=== PATIENT | female | born 1980 | race Caucasian/White ===

== ENCOUNTER → 2016-08-14 | Outpatient (CLI) | payer OTHER ==
[2016-08-14 17:20] LABS: BASO % 0.3 %; BASO ABS # 0.02 K/uL (0-0.2); COMPLETE YES; EOS % 2.6 %; HEMATOCRIT 41.2 % (37-47); IG% 0.1 %; LYMPH % 36.3 %; LYMPH ABS # 2.68 K/uL (1.2-3.4); MEAN CELL VOLUME 90.5 fL (80-100); MEAN CORPUSCULAR HEMOGLOBIN 29.2 pg (25-34); MEAN CORPUSCULAR HGB CONC 32.3 g/dl (32-36); MEAN PLATELET VOLUME 11.3 fL (7.4-10.4); MONO % 7.7 %; PLATELET COUNT 103 K/uL (130-400); RED BLOOD COUNT 4.55 M/uL (4.2-5.4); WHITE BLOOD COUNT 7.38 K/uL (4.8-10.8)
[2016-08-14 17:24] LABS: ALT/SGPT 24 U/L (12-78); BLOOD UREA NITROGEN 21 mg/dl (7-18); BUN/CREATININE RATIO 23.2 (10-20); CALCIUM 8.7 mg/dl (8.5-10.1); CARBON DIOXIDE 29 mmol/L (21-32); CHLORIDE 104 mmol/L (98-107); CHOLESTEROL 211 mg/dl (0-200); GLUCOSE 92 mg/dl (70-99); POTASSIUM 4.4 mmol/L (3.5-5.1); SODIUM 139 mmol/L (136-145)
[2016-08-14 17:35] LABS: ALKALINE PHOSPHATASE 62 U/L (45-117); AST/SGOT 14 U/L (15-37); CHOLESTEROL/HDL RATIO 3.3; HDL CHOLESTEROL 63 mg/dl; LDL CHOLESTEROL CALCULATED 107 mg/dl; THYROID STIMULATING HORMONE 0.582 uIu/ml (0.300-4.500); TRIGLYCERIDES 205 mg/dl (0-150); VERY LOW DENSITY LIPOPROT CALC 41 mg/dl
== END | disposition home or self-care (01) ==
LOC: C.LABBC 14:07
PROVIDERS: ATTEND Nurse Practitioner Adult Health
DX: Z00.00 Encounter for general adult medical examination without abnormal findings (principal); D69.6 Thrombocytopenia, unspecified; R42 Dizziness and giddiness; H81.09 Meniere's disease, unspecified ear

== ENCOUNTER → 2016-08-27 | Outpatient (CLI) | payer OTHER ==
--- NOTE | 2016-08-27 12:48 | DIAGNOSTIC IMAGING REPORT ---
THYROID ULTRASOUND CLINICAL HISTORY: Enlarged thyroid. COMPARISON STUDY: None. TECHNIQUE: Sonography of the thyroid gland was performed. FINDINGS: The right thyroid lobe measures 4.5 x 1.7 x 2.1 cm and the left lobe measures 4.4 x 1.2 x 1.7 cm. The isthmus measures 0.3 cm in thickness. There are a few tiny hypoechoic/cystic thyroid nodules that measure up to 2 mm. These likely reflect tiny colloid cysts. IMPRESSION: A few tiny colloid cysts measuring up to 2 mm. Otherwise, normal thyroid ultrasound. Electronically signed by: Kane Cai M.D. 08/27/2016 12:47 PM Dictated Date/Time: 08/27/2016 12:46 PM
== END | disposition home or self-care (01) ==
LOC: C.ULTRBC 12:15
PROVIDERS: ATTEND Physician Assistant
DX: E01.0 Iodine-deficiency related diffuse (endemic) goiter (principal)

== ENCOUNTER → 2016-09-11 | Outpatient (CLI) | payer OTHER ==
[2016-09-11 13:57] LABS: HEMATOCRIT 39.7 % (37-47); MEAN CELL VOLUME 90.8 fL (80-100); MEAN CORPUSCULAR HEMOGLOBIN 29.5 pg (25-34); MEAN CORPUSCULAR HGB CONC 32.5 g/dl (32-36); MEAN PLATELET VOLUME 12.4 fL (7.4-10.4); PLATELET COUNT 70 K/uL (130-400); RED BLOOD COUNT 4.37 M/uL (4.2-5.4)
[2016-09-11 13:59] LABS: BASO % 0.4 %; BASO ABS # 0.02 K/uL (0-0.2); COMPLETE YES; EOS % 1.9 %; LYMPH % 35.8 %; LYMPH ABS # 2.04 K/uL (1.2-3.4); MONO % 11.8 %; NEUT % 50.1 %; PLT ESTIMATE DECREASED
== END | disposition home or self-care (01) ==
LOC: C.LABBC 09:49
PROVIDERS: ATTEND Nurse Practitioner Adult Health
DX: R79.89 Other specified abnormal findings of blood chemistry (principal)

== ENCOUNTER → 2016-10-11 | Outpatient (CLI) | payer OTHER ==
--- NOTE | 2016-10-11 13:56 | MAMMOGRAPHY REPORT ---
BILATERAL DIGITAL DIAGNOSTIC MAMMOGRAM TOMOSYNTHESIS WITH CAD AND TARGETED LEFT ULTRASOUND: 10/11/2016 CLINICAL HISTORY: The patient reports feeling a left breast lump during her period approximately 2 we eks ago. She can no longer clearly feel a lump but feels some residual tenderness in the region. TECHNIQUE: Breast tomosynthesis in addition to standard 2D mammography was performed. Current study was also evaluated with a Computer Aided Detection (CAD) system. Bilateral CC and MLO 2-D and tomosy nthesis images were obtained. COMPARISON: No prior exams were available for comparison. BREAST COMPOSITION: The tissue of both breasts is heterogeneously dense, which may obscure small mas ses. FINDINGS: There are no suspicious masses, calcifications, or areas of architectural distortion noted in either breast. A triangle marker liao the site of the palpable lump in the left upper outer quad rant; no suspicious findings are seen in this region mammographically. Targeted ultrasound was performed of the general region of the palpable lump and residual tenderness felt by the patient. She can no longer clearly feel a lump but pointed to the general region in the left breast at 1:00, approximately 9 cm from the nipple. Sonographically normal tissue is seen in th is region, without evidence of a mass or other suspicious sonographic abnormality. IMPRESSION: ACR BI-RADS CATEGORY 1: NEGATIVE, TARGETED ULTRASOUND ACR BI-RADS CATEGORY 1: NEGATIVE No suspicious mammographic or sonographic abnormality at the site of the previously palpable left elijah ast lump and tenderness pointed out by the patient. There is no mammographic or targeted sonographic evidence of malignancy. Recommend clinical follow-up for the left breast lump and tenderness, and r ecommend routine bilateral screening mammograms starting at the age of 40 unless otherwise clinically indicated. The patient has been verbally notified of the results. Approximately 10% of breast cancers are not detected with mammography. A negative mammographic report should not delay biopsy if a clinically suggestive mass is present. Kianna Soriano M.D. ah/:10/11/2016 10:04:33 Marketing/Sales Person: Yamila ATKINSON)([employer]), [facility] letter sent: Normal 1/2 BI-RADS Code: ACR BI-RADS Category 1: Negative Ultrasound BI-RADS: ACR BI-RADS Category 1: Negative
== END | disposition home or self-care (01) ==
LOC: C.MAMM 09:31
PROVIDERS: ATTEND Family Medicine
DX: N63 Unspecified lump in breast (principal)

== ENCOUNTER → 2016-11-13 | Outpatient (CLI) | payer OTHER | END | disposition home or self-care (01) | LOC: C.PAPS 07:37 | PROVIDERS: ATTEND Nurse Practitioner Adult Health | DX: Z12.4 Encounter for screening for malignant neoplasm of cervix (principal) ==

== ENCOUNTER → 2016-12-05 | Outpatient (CLI) | payer OTHER ==
--- NOTE | 2016-12-05 15:46 | DIAGNOSTIC IMAGING REPORT ---
C-SPINE ROUTINE 4 OR 5 VIEWS HISTORY: 36 years-old Female PARESTHESIA OF ARM chronic paresthesias of the bilateral arms COMPARISON: None available TECHNIQUE: 5 views of the cervical spine FINDINGS: There is straightening of the normal cervical lordosis. No acute fracture, subluxation or significant degenerative changes. No prevertebral soft tissue swelling. Imaged lung apices appear clear. IMPRESSION: 1. No acute fracture, subluxation or significant degenerative changes. 2. Straightening of the normal cervical lordosis. This may be attributed to positioning or paraspinal muscle spasm. The above report was generated using voice recognition software. It may contain grammatical, syntax or spelling errors. Electronically signed by: Keenan Cade M.D. 12/05/2016 3:45 PM Dictated Date/Time: 12/05/2016 3:44 PM
[2016-12-05 16:56] LABS: HEMATOCRIT 40.7 % (37-47); MEAN CELL VOLUME 90.6 fL (80-100); MEAN CORPUSCULAR HEMOGLOBIN 29.8 pg (25-34); MEAN CORPUSCULAR HGB CONC 32.9 g/dl (32-36); RED BLOOD COUNT 4.49 M/uL (4.2-5.4); WHITE BLOOD COUNT 6.46 K/uL (4.8-10.8)
[2016-12-05 17:03] LABS: MEAN PLATELET VOLUME 11.6 fL (7.4-10.4); PLATELET COUNT 48 K/uL (130-400)
[2016-12-05 17:17] LABS: BASO % 0.2 %; BASO ABS # 0.01 K/uL (0-0.2); COMPLETE YES; EOS % 0.5 %; LYMPH % 36.7 %; LYMPH ABS # 2.37 K/uL (1.2-3.4); NEUT % 55.6 %
== END | disposition home or self-care (01) ==
LOC: C.RADBC 14:34
PROVIDERS: ATTEND Nurse Practitioner Adult Health
DX: R20.2 Paresthesia of skin (principal); D69.6 Thrombocytopenia, unspecified; R42 Dizziness and giddiness

== ENCOUNTER → 2017-04-09 | Outpatient (CLI) | payer OTHER ==
--- NOTE | 2017-04-09 11:43 | DIAGNOSTIC IMAGING REPORT ---
L CLAVICLE, L SHOULDER MIN 2 VIEWS ROUTINE CLINICAL HISTORY: Left clavicle and left shoulder pain. COMPARISON STUDY: None. FINDINGS: No fracture or dislocation within the left shoulder or left clavicle. The AC joint is well aligned. Soft tissues are unremarkable. Mild dextroscoliosis thoracic spine. IMPRESSION: No fracture or dislocation within the left shoulder or left clavicle. Electronically signed by: Nitesh Green M.D. 04/09/2017 11:42 AM Dictated Date/Time: 04/09/2017 11:40 AM
--- NOTE | 2017-04-09 11:47 | DIAGNOSTIC IMAGING REPORT ---
R SHOULDER MIN 2 VIEWS ROUTINE CLINICAL HISTORY: M89.8X1 RIGHT SHOULDER PAIN COMPARISON: None. DISCUSSION: No fractures or dislocations are visualized. There are no erosive or destructive changes. IMPRESSION: No significant bony abnormalities Electronically signed by: James Vega M.D. 04/09/2017 11:46 AM Dictated Date/Time: 04/09/2017 11:45 AM
== END | disposition home or self-care (01) ==
LOC: C.RADBC 11:07
PROVIDERS: ATTEND Nurse Practitioner Adult Health
DX: M89.8X1 Other specified disorders of bone, shoulder (principal); M25.511 Pain in right shoulder; M25.512 Pain in left shoulder